=== PATIENT | male | born 1950 | race Caucasian/White ===

== ENCOUNTER 2024-10-29 14:21 | Emergency (ER) | payer MEDICARE, OTHER ==
[~2024-10-29] VITALS: Ht 172.7 cm; Wt 90.7 kg
[2024-10-29] MEDS ORDERED: Acetaminophen 500 MG Tab PO ONE (15:45)
[2024-10-29] MEDS ORDERED: Ketorolac Tromethamine 15mg Vial IV ONE (15:45)
== END 2024-10-29 17:34 | disposition home or self-care (01) ==
LOC: ER 14:21
DX: M54.50 Low back pain, unspecified (principal); E11.9 Type 2 diabetes mellitus without complications
CPT/HCPCS: 72131; 96374; 99284-25; A9270; J1885

== ENCOUNTER 2025-08-10 22:01 | Inpatient (IN) | payer MEDICARE, OTHER ==
[~2025-08-10] VITALS: Ht 172.7 cm; Wt 81.4 kg
[2025-08-11 00:30] VITALS: BP 108/64
[2025-08-11] MEDS ORDERED: GABA300 PO (00:34)
[2025-08-11] MEDS ORDERED: INSULANPEN (00:35)
[2025-08-11] MEDS ORDERED: ACET500 PO (00:36)
[2025-08-11 00:59] LABS: BASOPHILS ABSOLUTE AUTO 0.07 K/mm3 (0.00-0.23); BASOPHILS PERCENT AUTO 1 % (0-2); EOSINOPHILS ABSOLUTE AUTO 0.19 K/mm3 (0.00-0.68); EOSINOPHILS PERCENT AUTO 2 % (0-6); Hematocrit 40.2 % (37.0-53.0); Hemoglobin 14.4 g/dL (13.5-17.5); IMMATURE GRAN ABSOLUTE AUTO 0.10 K/mm3 (0.00-0.10); IMMATURE GRAN PERCENT AUTO 1 % (0-1); LYMPHOCYTES ABSOLUTE AUTO 1.54 K/mm3 (0.84-5.20); LYMPHOCYTES PERCENT AUTO 14 % (21-46); MONOCYTES ABSOLUTE AUTO 1.35 K/mm3 (0.16-1.47); MONOCYTES PERCENT AUTO 12 % (4-13); Mean Corpuscular HGB Conc 35.8 g/dL (31.5-36.5); Mean Corpuscular Volume 89 fL (80-100); NEUTROPHILS ABSOLUTE AUTO 7.98 K/mm3 (1.96-9.15); NEUTROPHILS PERCENT AUTO 71 % (41-73); NRBC ABSOLUTE 0.00 K/mm3 (0.00-0.02); NRBC Auto 0.0 /100 WBC (0.0-0.2); Platelet Count 287 K/mm3 (150-400); RDW Coefficient Variation 12.4 % (11.7-14.2); RDW Standard Deviation 40.5 fL (35.1-46.3)
[2025-08-11 01:14] LABS: Prothrombin Time Results 10.9 Sec (9.7-11.5)
[2025-08-11 01:29] LABS: Magnesium, Blood 2.1 mg/dL (1.6-2.4)
[2025-08-11 01:30] LABS: Alanine Aminotransfer (ALT/SGP 51.0 U/L (12-78); Albumin, Blood 2.3 g/dL (3.4-5.0); Albumin/Globulin Ratio 0.5 (0.8-1.8); Anion Gap 11.0 mmol/L (3-11); Aspartate Aminotrans (AST/SGOT 24.0 U/L (12-37); Bilirubin, Total 0.3 mg/dL (0.1-1.0); Blood Urea Nitrogen 80.0 mg/dL (8-24); CO2, Blood 20.0 mmol/L (21-32); Calcium, Blood 8.4 mg/dL (8.5-10.1); Chloride, Blood 104.0 mmol/L (98-108); Creatinine, Blood 2.18 mg/dL (0.60-1.20); Globulin, Blood 4.6 g/dL (2.2-4.0); Glucose, Blood 248.0 mg/dL (70-99); Potassium, Blood 4.7 mmol/L (3.5-5.5); Sodium, Blood 130.0 mmol/L (136-145); Total Protein, Blood 6.9 g/dL (6.4-8.2)
[2025-08-11] MEDS ORDERED: FLU VACC TS2025(65UP)/MF59C/PF 45 MCG/0.5 ML SYRINGE IM SCH (01:30)
[2025-08-11] MEDS ORDERED: CefTRIAXone Sodium 2,000 MG in NS 100 ML IV SCH ×2 (01:56→07:00)
[2025-08-11] MEDS ORDERED: Insulin Glargine-Yfgn 100 Unit/mL 3 ML SYR SC ONE (02:00)
[2025-08-11] MEDS ORDERED: Insulin Glargine 100 Unit/ML 3 ML SYR SC ONE (02:15)
[2025-08-11 03:16] LABS: Phosphorus, Blood 2.1 mg/dL (2.5-4.9)
[2025-08-11 03:20] VITALS: BP 124/76
[2025-08-11 05:29] LABS: BASOPHILS ABSOLUTE AUTO 0.08 K/mm3 (0.00-0.23); BASOPHILS PERCENT AUTO 1 % (0-2); EOSINOPHILS ABSOLUTE AUTO 0.26 K/mm3 (0.00-0.68); EOSINOPHILS PERCENT AUTO 2 % (0-6); Hematocrit 39.4 % (37.0-53.0); Hemoglobin 13.8 g/dL (13.5-17.5); IMMATURE GRAN ABSOLUTE AUTO 0.14 K/mm3 (0.00-0.10); IMMATURE GRAN PERCENT AUTO 1 % (0-1); LYMPHOCYTES ABSOLUTE AUTO 1.49 K/mm3 (0.84-5.20); LYMPHOCYTES PERCENT AUTO 13 % (21-46); MONOCYTES ABSOLUTE AUTO 1.18 K/mm3 (0.16-1.47); MONOCYTES PERCENT AUTO 10 % (4-13); Mean Corpuscular HGB Conc 35.0 g/dL (31.5-36.5); Mean Corpuscular Volume 91 fL (80-100); NEUTROPHILS ABSOLUTE AUTO 8.20 K/mm3 (1.96-9.15); NEUTROPHILS PERCENT AUTO 72 % (41-73); NRBC ABSOLUTE 0.00 K/mm3 (0.00-0.02); NRBC Auto 0.0 /100 WBC (0.0-0.2); Platelet Count 301 K/mm3 (150-400); RDW Coefficient Variation 12.5 % (11.7-14.2); RDW Standard Deviation 41.8 fL (35.1-46.3)
[2025-08-11] MEDS ORDERED: NS 1,000 ML IV ONE (06:00)
[2025-08-11 06:07] LABS: Alanine Aminotransfer (ALT/SGP 46.0 U/L (12-78); Albumin, Blood 2.3 g/dL (3.4-5.0); Albumin/Globulin Ratio 0.5 (0.8-1.8); Anion Gap 10.0 mmol/L (3-11); Aspartate Aminotrans (AST/SGOT 19.0 U/L (12-37); Bilirubin, Total 0.4 mg/dL (0.1-1.0); Blood Urea Nitrogen 79.0 mg/dL (8-24); CO2, Blood 22.0 mmol/L (21-32); Calcium, Blood 8.4 mg/dL (8.5-10.1); Chloride, Blood 103.0 mmol/L (98-108); Creatinine, Blood 2.06 mg/dL (0.60-1.20); Globulin, Blood 4.4 g/dL (2.2-4.0); Glucose, Blood 270.0 mg/dL (70-99); Potassium, Blood 4.6 mmol/L (3.5-5.5); Sodium, Blood 130.0 mmol/L (136-145); Total Protein, Blood 6.7 g/dL (6.4-8.2)
[2025-08-11] MEDS ORDERED: Insulin Human Lispro 100 Units/ML 3ML Syringe SC SCH ×2 (07:30→08:30)
[2025-08-11 07:42] VITALS: BP 116/68
[2025-08-11 08:06] LABS: Source, Urine Foley catheter
[2025-08-11 08:09] LABS: Bilirubin, Urine Neg (Neg); Color, Urine Yellow (P-Yellow); Glucose Qualitative, Urine 3+ (Neg); Ketones, Urine Neg (Neg); Leukocyte Esterase, Urine 3+ (Neg); Protein, Urine 3+ (Neg); Specific Gravity, Urine 1.015 (1.003-1.022); Urobilinogen, Urine NORM (Normal)
[2025-08-11 08:15] LABS: Red Blood Cells, Urine 50-100 /hpf (0-2); White Blood Cells, Urine 50-100 /hpf (0-5)
[2025-08-11] MEDS ORDERED: Lactobacil 2-S.Thermo-Bifido 1 1 Cap PO SCH (09:00)
[2025-08-11] MEDS ORDERED: Enoxaparin 40 MG/0.4 ML SYR SC SCH (09:00)
[2025-08-11 11:42] VITALS: BP 124/73
[2025-08-11 15:56] VITALS: BP 121/77
--- NOTE | 2025-08-11 16:09 | NUR ---
TRANSFER NOTE: MEDICAL NO TELE STATUS- A/O X4, ABLE TO COMMUNICATE NEEDS, USES CALL LIGHT APPROPRIATELY, TEARFUL AT TIMES WITH FLAT/WITHDRAWN AFFECT. CONCEPCION IS PATENT AND DRAINING CLOUDY YELLOW URINE WITH SEDIMENT TO GRAVITY. GAVE REPORT TO KRAIG IN RM 324 AT APPROX 1540, LEFT THE UNIT IN BED WITH ALL BELONGINGS AT APPROX 1550 WITHOUT INCIDENT.
[2025-08-11] MEDS ORDERED: Polyethylene Glycol 3350 17 gm PO PRN (16:20)
--- NOTE | 2025-08-11 17:28 | NUR ---
PATIENT TRANSFERED FROM PCU TO MEDICAL A/O X4. PATIENT HAS NO COMPLAINTS OF PAIN OR DISCOMFORT. UROLOGIST AT BEDSIDE TO EVALUATE AND MAKE A PLAN WITH THE PATIENT. CALL LIGHT WITHIN REACH AND BED IN LOW POSITION. NO CONCERNS
[2025-08-11 20:23] VITALS: BP 136/91
[2025-08-11] MEDS ORDERED: Insulin Glargine 100 Unit/ML 3 ML SYR SC SCH ×2 (21:00)
[2025-08-11] MEDS ORDERED: Insulin Glargine-Yfgn 100 Unit/mL 3 ML SYR SC SCH (21:00)
[2025-08-12 02:40] VITALS: BP 129/71
--- NOTE | 2025-08-12 03:52 | NUR ---
SHIFT SUMMARY: PT IS AOX4 AND ABLE TO MAKE NEEDS KNOWN. CONCEPCION IS PATENT AND DRAINING TO GRAVITY. URINE IS YELLOW IN COLOR AND SLIGHTLY CLOUDY. PT MEDICATED PER EMAR. NO ACUTE CHANGES THIS SHIFT.
[2025-08-12] MEDS ORDERED: NS 250 ML IV PRN (05:10)
[2025-08-12 07:23] VITALS: BP 121/71
[2025-08-12 07:24] LABS: BASOPHILS ABSOLUTE AUTO 0.07 K/mm3 (0.00-0.23); BASOPHILS PERCENT AUTO 1 % (0-2); EOSINOPHILS ABSOLUTE AUTO 0.24 K/mm3 (0.00-0.68); EOSINOPHILS PERCENT AUTO 2 % (0-6); Hematocrit 40.7 % (37.0-53.0); Hemoglobin 13.5 g/dL (13.5-17.5); IMMATURE GRAN ABSOLUTE AUTO 0.15 K/mm3 (0.00-0.10); IMMATURE GRAN PERCENT AUTO 2 % (0-1); LYMPHOCYTES ABSOLUTE AUTO 1.34 K/mm3 (0.84-5.20); LYMPHOCYTES PERCENT AUTO 13 % (21-46); MONOCYTES ABSOLUTE AUTO 1.20 K/mm3 (0.16-1.47); MONOCYTES PERCENT AUTO 12 % (4-13); Mean Corpuscular HGB Conc 33.2 g/dL (31.5-36.5); Mean Corpuscular Volume 95 fL (80-100); NEUTROPHILS ABSOLUTE AUTO 7.04 K/mm3 (1.96-9.15); NEUTROPHILS PERCENT AUTO 70 % (41-73); NRBC ABSOLUTE 0.00 K/mm3 (0.00-0.02); NRBC Auto 0.0 /100 WBC (0.0-0.2); Platelet Count 293 K/mm3 (150-400); RDW Coefficient Variation 13.0 % (11.7-14.2); RDW Standard Deviation 45.3 fL (35.1-46.3)
[2025-08-12 07:48] LABS: Anion Gap 9.0 mmol/L (3-11); Blood Urea Nitrogen 53.0 mg/dL (8-24); CO2, Blood 24.0 mmol/L (21-32); Calcium, Blood 8.3 mg/dL (8.5-10.1); Chloride, Blood 103.0 mmol/L (98-108); Creatinine, Blood 1.68 mg/dL (0.60-1.20); Glucose, Blood 336.0 mg/dL (70-99); Potassium, Blood 4.8 mmol/L (3.5-5.5); Sodium, Blood 131.0 mmol/L (136-145)
[2025-08-12] MEDS ORDERED: NS 1,000 ML IV SCH (09:00)
[2025-08-12] MEDS ORDERED: Insulin Glargine 100 Unit/ML 3 ML SYR SC SCH ×2 (09:00→21:00)
--- NOTE | 2025-08-12 13:44 | NUR ---
NOTE BREAK RN PUT IN REQUEST FOR RECORDS FROM THE [facility]. ANTONIO FAXED OVER URINE CULTURE RESULTS, REPORTED RESULTS TO ANALI FINNEGAN. ANALI FINNEGAN CAME TO TALK TO PT. THIS RN REPORTED BREAKFAST AND LUNCH BLOOD SUGAR RESULTS. ANALI FINNEGAN MADE ADJUSTEMENTS TO INSULIN ORDERS. PHYSICAL THERAPY REPORTED ATTEMPTED TO WORK WITH PT BUT PT REPORTED "I GET AROUND FINE AT HOME, BLOOD SUGAR REMAINS HIGH, I WILL WORK WITH PT TOMORROW." PT IN BED. BED IN LOWEST POSITION, CALL LIGHT IN REACH.
[2025-08-12 14:53] VITALS: BP 148/76
[2025-08-12] MEDS ORDERED: Insulin Human Lispro 100 Units/ML 3ML Syringe SC SCH (16:30)
--- NOTE | 2025-08-12 17:22 | NUR ---
SHIFT SUMMARY PT A&OX4. PT ADMITTED DUE TO JOE. PHYSICAL THERAPY ATTEMPTED WORKING WITH PT. PT REPORTS BLE PAIN, PAIN MANGED PER EMAR, GABAPENTIN WAS INCREASED TODAY DUE TO NUMBNESS AND TINGLING PAIN. PT ACHS, INSULIN ADJUSTED TODAY, DIETITION GAVE DIABETIC EDUCATION. PT HAS CONCEPCION IN PLACE, DRAINING ADEQUATE WITH NO DEPENDENT LOOPS, RECORDS FROM [facility] IN CHART. URINE CULTURE FROM [facility] IN CHART, REPORTED TO DR BRIONES. PT IN BED, BED IN LOWEST POSITION, CALL LIGHT IN REACH. PT CALLS APPROPRIATE. VSS.
[2025-08-12] MEDS ORDERED: Insulin Glargine-Yfgn 100 Unit/mL 3 ML SYR SC SCH (18:00)
[2025-08-12 19:43] VITALS: BP 118/67
--- NOTE | 2025-08-13 03:53 | NUR ---
SHIFT SUMMARY: PT IS AOX4 AND ABLE TO MAKE NEEDS KNOWN. PT MEDICATED PER EMAR. PT RESTING IN BED THROUGH OUT SHIFT. CONCEPCION IN PLACE AND IS PATENT AND DRAINING TO GRAVITY. NO ACUTE CHANGES THIS SHIFT.
[2025-08-13 04:15] VITALS: BP 124/60
[2025-08-13 04:25] LABS: BASOPHILS ABSOLUTE AUTO 0.10 K/mm3 (0.00-0.23); BASOPHILS PERCENT AUTO 1 % (0-2); EOSINOPHILS ABSOLUTE AUTO 0.23 K/mm3 (0.00-0.68); EOSINOPHILS PERCENT AUTO 2 % (0-6); Hematocrit 41.0 % (37.0-53.0); Hemoglobin 14.1 g/dL (13.5-17.5); IMMATURE GRAN ABSOLUTE AUTO 0.29 K/mm3 (0.00-0.10); IMMATURE GRAN PERCENT AUTO 3 % (0-1); LYMPHOCYTES ABSOLUTE AUTO 1.55 K/mm3 (0.84-5.20); LYMPHOCYTES PERCENT AUTO 15 % (21-46); MONOCYTES ABSOLUTE AUTO 1.16 K/mm3 (0.16-1.47); MONOCYTES PERCENT AUTO 11 % (4-13); Mean Corpuscular HGB Conc 34.4 g/dL (31.5-36.5); Mean Corpuscular Volume 93 fL (80-100); NEUTROPHILS ABSOLUTE AUTO 7.26 K/mm3 (1.96-9.15); NEUTROPHILS PERCENT AUTO 69 % (41-73); NRBC ABSOLUTE 0.00 K/mm3 (0.00-0.02); NRBC Auto 0.0 /100 WBC (0.0-0.2); Platelet Count 274 K/mm3 (150-400); RDW Coefficient Variation 13.0 % (11.7-14.2); RDW Standard Deviation 44.5 fL (35.1-46.3)
[2025-08-13 04:49] LABS: Alanine Aminotransfer (ALT/SGP 36.0 U/L (12-78); Albumin, Blood 2.2 g/dL (3.4-5.0); Albumin/Globulin Ratio 0.5 (0.8-1.8); Anion Gap 7.0 mmol/L (3-11); Aspartate Aminotrans (AST/SGOT 20.0 U/L (12-37); Bilirubin, Total 0.2 mg/dL (0.1-1.0); Blood Urea Nitrogen 39.0 mg/dL (8-24); CO2, Blood 23.0 mmol/L (21-32); Calcium, Blood 8.3 mg/dL (8.5-10.1); Chloride, Blood 109.0 mmol/L (98-108); Creatinine, Blood 1.37 mg/dL (0.60-1.20); Globulin, Blood 4.3 g/dL (2.2-4.0); Glucose, Blood 93.0 mg/dL (70-99); Potassium, Blood 4.2 mmol/L (3.5-5.5); Sodium, Blood 135.0 mmol/L (136-145); Total Protein, Blood 6.5 g/dL (6.4-8.2)
[2025-08-13] MEDS ORDERED: CefTRIAXone Sodium 1,000 MG in NS 100 ML IV SCH (06:00)
[2025-08-13 07:15] VITALS: BP 134/69
--- NOTE | 2025-08-13 08:16 | NUR ---
CALLED DR BLOUNT- PT BG WAS 97 THIS AM. HE HAS A NEW SEMGLEE ORDER FOR 30 UNITS BID AND THE FIRST DOSE OF THAT WAS GIVEN LAST NIGHT. HE HAS A NEW PREPRADIAL DOSE OF 10 UNITS PLUS CS HUMALOG INSULIN HE RECIEVED 2 DOSES OF YESTERDAY. PRIOR TO THIS AM DOSE PT BG TREND WAS 250-300 ON AVERAGE. ORDER RECIEVED TO HOLD ALL INSULIN AT THIS TIME AND CTM.
--- NOTE | 2025-08-13 12:22 | NUR ---
"Spiritual Care | Nurse Request At the request of the Pts. nurse this crm dynamics developer came to bedside. Pt. displayed evidence of anxiety about many things including confusion regarding his care. Facilitated a life review and Pt. verbalizes that while he has a daughter in [place], he doesn't want to bother her with his troubles. With theraputic listening the Pt. began to display evidence of finding encouragement. A nurse arrived to give the Pt. treatment. This crm dynamics developer agreed to return before the end of the day, and the Pt. welcomed the crm dynamics developer to return."
[2025-08-13 15:21] VITALS: BP 147/84
--- NOTE | 2025-08-13 16:24 | NUR ---
SHIFT SUMMARY- PT BG WAS LOW THIS AM SEE PREV NOTES FOR DETAILS. PT RECIEVED THE [address] PER [address] BRIONES A BIT LATER IN THE DAY. PT HAS A CONCEPCION IN PLACE AND HE WAS QUITE EMOTIONAL ABOUT THE IDEA OF BEING DISCHARGED "OUT ON THE STREET" "WITH NO WAY TO GET MY INSULIN UNTIL SATURDAY." PT HAD RECIEVED INFORMATION FROM THE [facility] AND FROM 2-3 DIFFERENT DOCTORS AND HE SEEMED TO HAVE ALL THE INPUT SCRAMBLED UP. DR BLOUNT SAT WITH HIM FOR QUITE A WHILE AND GOT IT STRAIGHTENED OUT FOR THE PT. PLAN IS FOR THE PT TO DC HOME WITH HOME HEALTH WIITH HIS CONCEPCION IN PLACE AND FOLLOW UP WITH UROLOGY AND HIS PCP. CARE MANAGEMENT SPOKE TO THE PT DAUGHTER WHO WILL HELP TRANSPORT THE PT AT DISCHARGE, WELL WITH HIS FOLLOW UP NEEDS.
[2025-08-13 19:32] LABS: Prostate Specific Antigen 163.000 ng/mL (0.000-4.000)
[2025-08-13 20:29] VITALS: BP 127/76
--- NOTE | 2025-08-14 04:48 | NUR ---
PT REQUESTED PAIN MEDICATION ONE TIME DURING THIS SHIFT. OTHER RIZZO RESTED COMFORTABLE WITH NO ACUTE EVENTS AND VITALS STABLE. CALL SEPULVEDA WITHIN REACH, BED IN LOW POSITION, CALL SEPULEVDA AND POSSESSIONS WITHIN REACH.
[2025-08-14 05:37] LABS: BASOPHILS ABSOLUTE AUTO 0.11 K/mm3 (0.00-0.23); BASOPHILS PERCENT AUTO 1 % (0-2); EOSINOPHILS ABSOLUTE AUTO 0.26 K/mm3 (0.00-0.68); EOSINOPHILS PERCENT AUTO 2 % (0-6); Hematocrit 39.6 % (37.0-53.0); Hemoglobin 13.8 g/dL (13.5-17.5); IMMATURE GRAN ABSOLUTE AUTO 0.45 K/mm3 (0.00-0.10); IMMATURE GRAN PERCENT AUTO 4 % (0-1); LYMPHOCYTES ABSOLUTE AUTO 1.94 K/mm3 (0.84-5.20); LYMPHOCYTES PERCENT AUTO 16 % (21-46); MONOCYTES ABSOLUTE AUTO 1.12 K/mm3 (0.16-1.47); MONOCYTES PERCENT AUTO 10 % (4-13); Mean Corpuscular HGB Conc 34.8 g/dL (31.5-36.5); Mean Corpuscular Volume 92 fL (80-100); NEUTROPHILS ABSOLUTE AUTO 7.97 K/mm3 (1.96-9.15); NEUTROPHILS PERCENT AUTO 67 % (41-73); NRBC ABSOLUTE 0.00 K/mm3 (0.00-0.02); NRBC Auto 0.0 /100 WBC (0.0-0.2); Platelet Count 310 K/mm3 (150-400); RDW Coefficient Variation 13.0 % (11.7-14.2); RDW Standard Deviation 44.1 fL (35.1-46.3)
[2025-08-14 06:01] LABS: Alanine Aminotransfer (ALT/SGP 35.0 U/L (12-78); Albumin, Blood 2.2 g/dL (3.4-5.0); Albumin/Globulin Ratio 0.5 (0.8-1.8); Anion Gap 11.0 mmol/L (3-11); Aspartate Aminotrans (AST/SGOT 23.0 U/L (12-37); Bilirubin, Total 0.2 mg/dL (0.1-1.0); Blood Urea Nitrogen 32.0 mg/dL (8-24); CO2, Blood 23.0 mmol/L (21-32); Calcium, Blood 8.6 mg/dL (8.5-10.1); Chloride, Blood 108.0 mmol/L (98-108); Creatinine, Blood 1.35 mg/dL (0.60-1.20); Globulin, Blood 4.4 g/dL (2.2-4.0); Glucose, Blood 76.0 mg/dL (70-99); Potassium, Blood 4.2 mmol/L (3.5-5.5); Sodium, Blood 138.0 mmol/L (136-145); Total Protein, Blood 6.6 g/dL (6.4-8.2)
[2025-08-14 07:37] VITALS: BP 131/71
[2025-08-14 15:14] VITALS: BP 131/84
[2025-08-14] MEDS ORDERED: FentaNYL Citrate 50 MCG/ML 2 ML Injection IV PRN (17:40)
[2025-08-14 20:05] VITALS: BP 146/82
--- NOTE | 2025-08-14 20:05 | NUR ---
PT WAS PLANNING TO DC HOME TODAY WITH DAUGHTER. THIS AFTERNOON FINANCIAL SERVICES MANAGER ALERTED RN THAT THE PT CONCEPCION WAS DRAINING BLOODY URINE. MD NOTIFIED, RN ATTEMPTED TO FLUSH OUT CLOT AFTER BLADDER SCAN>700 ML. AFTER OVER 30 MIN UNSUCCESSFUL FLUSHING, ORDER PLACED FOR CBI. ONCE ALL SUPPLIES GATHERED, OLD CONCEPCION REMOVED AND 3 WAY CONCEPCION PLACED FOR CBI. IMMEDIATLY DRAINED BLOODY URINE AND MULTIPLE CLOTS 500 ML OUT. BLADDER SCAN SHOWED 0ML, CBI STARTED, DRAINING CLEAR URINE. PT EDUCATED, REPORT GIVEN TO NARA RN.
[2025-08-14] MEDS ORDERED: Insulin Human Lispro 100 Units/ML 3ML Syringe SC SCH (21:00)
--- NOTE | 2025-08-14 23:19 | NUR ---
CONTINOUS BLADDER IRRIGATION DRAINING CLEAR YELLOW URINE WITH AN OCCASSIONAL CLOT IN BOTTOM OF BAG. BLADDER SCAN HAS BEEN ZERO AFTER CLAMPING FOR THIRTY MINUTES. RATE SLOWED PER VERBAL ORDER FROM DR FRAGA APPROX 500 mL/HR AFTER TWO HOURS @ 1,000 mL/HR. WCTM. PATIENT TOLERATING WELL. WCTM.
--- NOTE | 2025-08-15 04:03 | NUR ---
SHIFT SUMMARY PATIENT HAD NO ACUTE CHANGES. ALERT ORIENTED AND ONE ASSIST. ON CBI RUNNING CLEAR YELLOW URINE. DENIES CHEST PAIN, SOB, AND N/V. VSS/FEBRILE LOW GRADE TEMP 99.0. REPORTED ABDOMEN PAIN X ONE AND OXYCODONE 5 MG GIVEN PER EMAR. TYLENOL 650 GIVEN FOR HAND/FEET PAIN. PIV INTACT. CBG 267. CONCEPCION PATENT AND DRAINING TO GRAVITY. CALL LIGHT IN REACH. BED IN LOWEST POSITION. WILL CONTINUE TO MONITOR UNTIL DAY SHIFT NURSE ASSUMES CARE.
[2025-08-15 04:48] VITALS: BP 128/75
[2025-08-15 05:03] LABS: BASOPHILS ABSOLUTE AUTO 0.10 K/mm3 (0.00-0.23); BASOPHILS PERCENT AUTO 1 % (0-2); EOSINOPHILS ABSOLUTE AUTO 0.39 K/mm3 (0.00-0.68); EOSINOPHILS PERCENT AUTO 4 % (0-6); Hematocrit 39.1 % (37.0-53.0); Hemoglobin 12.9 g/dL (13.5-17.5); IMMATURE GRAN ABSOLUTE AUTO 0.30 K/mm3 (0.00-0.10); IMMATURE GRAN PERCENT AUTO 3 % (0-1); LYMPHOCYTES ABSOLUTE AUTO 1.77 K/mm3 (0.84-5.20); LYMPHOCYTES PERCENT AUTO 17 % (21-46); MONOCYTES ABSOLUTE AUTO 0.93 K/mm3 (0.16-1.47); MONOCYTES PERCENT AUTO 9 % (4-13); Mean Corpuscular HGB Conc 33.0 g/dL (31.5-36.5); Mean Corpuscular Volume 95 fL (80-100); NEUTROPHILS ABSOLUTE AUTO 6.89 K/mm3 (1.96-9.15); NEUTROPHILS PERCENT AUTO 66 % (41-73); NRBC ABSOLUTE 0.00 K/mm3 (0.00-0.02); NRBC Auto 0.0 /100 WBC (0.0-0.2); Platelet Count 290 K/mm3 (150-400); RDW Coefficient Variation 12.9 % (11.7-14.2); RDW Standard Deviation 45.4 fL (35.1-46.3)
[2025-08-15 06:08] LABS: Alanine Aminotransfer (ALT/SGP 33.0 U/L (12-78); Albumin, Blood 2.1 g/dL (3.4-5.0); Albumin/Globulin Ratio 0.5 (0.8-1.8); Anion Gap 9.0 mmol/L (3-11); Aspartate Aminotrans (AST/SGOT 22.0 U/L (12-37); Bilirubin, Total 0.2 mg/dL (0.1-1.0); Blood Urea Nitrogen 28.0 mg/dL (8-24); CO2, Blood 23.0 mmol/L (21-32); Calcium, Blood 8.6 mg/dL (8.5-10.1); Chloride, Blood 107.0 mmol/L (98-108); Creatinine, Blood 1.27 mg/dL (0.60-1.20); Globulin, Blood 4.1 g/dL (2.2-4.0); Glucose, Blood 175.0 mg/dL (70-99); Potassium, Blood 4.5 mmol/L (3.5-5.5); Sodium, Blood 134.0 mmol/L (136-145); Total Protein, Blood 6.2 g/dL (6.4-8.2)
[2025-08-15 07:14] VITALS: BP 127/68
[2025-08-15 15:51] VITALS: BP 137/73
--- NOTE | 2025-08-15 19:24 | NUR ---
SHIFT SUMMARY; A/O X4, PLEASANT, AND COPPERATIVE WITH CARE. PT AT BEDREST DURING SHIFT. UPON ASSESSMENT, CONCEPCION TUBE FOR CBI HAD FEW SMALL CLUMPS OF SEDIMENT THAT WERE CAUSING SLIGHT IRRIGATION BLOCKAGE THAT RESOLVED THROUGHOUT THE SHIFT. ORDER RECEIVED TO STOP BLADDER IRRIGATION AT APPROX 1400. NURSE NOTIFY PLACED TO RESUME OF URINE BECOMES BLOODY OR IF NO OUTPUT FOR 4 HOURS. BEDNIGHT SHIFT REPORT COMPLETE TO QUARRY SUPERVISOR OPEN PIT RN. PT REQUESTING TYLENOL. QUARRY SUPERVISOR OPEN PIT RN AWARE. PT IS IN BED, CALL LIGHT WITHIN REACH. NO S/SXS OF DISTRESS.
[2025-08-15 19:55] VITALS: BP 130/67
--- NOTE | 2025-08-16 04:02 | NUR ---
SHIFT SUMMARY PATIENT HAD NO ACUTE CHANGES. ALERT ORIENTED AND ONE ASSIST W/FWW GB TO BR. CONCEPCION PATENT AND DRAINING TO GRAVITY. PIV INTACT. DENIES CHEST PAIN, SOB, AND N/V. VSS/AFEBRILE. CBG 218. REPORTED CHRONIC BACK PAIN AND TYLENOL 650 MG GIVEN PER EMAR. COOPERATIVE WITH CARE. CALL LIGHT IN REACH. BED IN LOWEST POSITION. WILL CONTINUE TO MONITOR UNTIL DAY SHIFT NURSE ASSUMES CARE
[2025-08-16 04:30] VITALS: BP 130/72
[2025-08-16 06:17] LABS: Anion Gap 8.0 mmol/L (3-11); Blood Urea Nitrogen 29.0 mg/dL (8-24); CO2, Blood 25.0 mmol/L (21-32); Calcium, Blood 8.9 mg/dL (8.5-10.1); Chloride, Blood 104.0 mmol/L (98-108); Creatinine, Blood 1.35 mg/dL (0.60-1.20); Glucose, Blood 188.0 mg/dL (70-99); Potassium, Blood 4.8 mmol/L (3.5-5.5); Sodium, Blood 132.0 mmol/L (136-145)
[2025-08-16 07:25] LABS: Hematocrit 39.9 % (37.0-53.0); Hemoglobin 13.2 g/dL (13.5-17.5)
[2025-08-16 08:00] VITALS: BP 118/61
[2025-08-16] MEDS ORDERED: INSULANPEN SC (14:44)
[2025-08-16] MEDS ORDERED: HUMALOG KW100 UNIT/1 SC (14:45)
[2025-08-16] MEDS ORDERED: VISBIOME 112.51 EACH PO (14:45)
[2025-08-16] MEDS ORDERED: TAMS.4ER PO (14:45)
[2025-08-16] MEDS ORDERED: BICALUTAMIDE50 M1 PO (14:45)
[2025-08-16] MEDS ORDERED: Cefpodoxime Pr100 MG PO (14:46)
[2025-08-16 15:36] VITALS: BP 146/80
--- NOTE | 2025-08-16 20:05 | NUR ---
SHIFT SUMMARY PT A&OX4. PT ADMITTED DUE TO JOE. PT REPORTS NO CHEST PAIN/SOB. PT REPORTS BLE TINGLING FEET PAIN. PAIN MANAGED PER EMAR. VSS. PT ACHS, INSULIN PROVIDED WITH MEALS. NIGHT RN PREVIOUSLY REPORTED STOPPING BLADDER IRRIGATION PER NO BLOOD IN URINE. DURING SHIFT, MINIMAL BLOOD SEEN BY THIS RN IN CONCEPCION, REPORTED TO DR. BLOUNT. DR. BLOUNT ORDERED DISCHARGE. PT SBA. CONT OF URINE. BAG MENDER INVOLVED. PT REPORTED WANTING TO BOOK HOTEL AND STAY IN [place] THIS WEEK TO MAKE IT TO UROLOGY APPT NEXT WEEK. BAG MENDER REPORTED "PT NEEDS TO CALL FOR TAXI TO GET TO PHARMACY AND HOTEL." WENT OVER DISCHARGE INSTRUCTIONS AND MEDS WITH PT. ELIER RN EXCHANGED CONCEPCION BAG TO LEG BAG PER PT REQUEST AND DR. BLOUNT APPROVAL. PT SENT WITH EXTRA CONCEPCION BAG SUPPLIES AND ALCOHOL SWABS. ELIER RN PROVIDED EDUCATION ABOUT BAG AND SAFE AND CLEAN HANDELING. MEDS FAXED TO PREFERRED PHARMACY. [facility] DEAN ESCORTED PT VIA WHEELCHAIR TO PT ENTERANCE.
== END 2025-08-16 18:00 | disposition home health service (06) | DRG 638 ==
LOC: MEDS 22:01 → ICUE 22:01 → PCU 22:01 → MEDS 08-11 16:00 → ENPENDDIS 08-16 10:35 → EDPENDDIS 08-16 10:35 → MEDS 08-16 18:00
PROVIDERS: Student in an Organized Health Care Education/Training Program; Urology; ADMIT Internal Medicine
PROC: 0T9B70Z Drainage of Bladder with Drainage Device, Via Natural or Artificial Opening (ICD-10-PCS; principal; 2025-08-10)
PROC: 3E03329 Introduction of Other Anti-infective into Peripheral Vein, Percutaneous Approach (ICD-10-PCS; 2025-08-11)
PROC: 3E02340 Introduction of Influenza Vaccine into Muscle, Percutaneous Approach (ICD-10-PCS; 2025-08-11)
DX: E11.00 Type 2 diabetes mellitus with hyperosmolarity without nonketotic hyperglycemic-hyperosmolar coma (NKHHC) (principal); E87.1 Hypo-osmolality and hyponatremia; N17.9 Acute kidney failure, unspecified; N13.6 Pyonephrosis; N13.8 Other obstructive and reflux uropathy; Z66 Do not resuscitate; Z60.2 Problems related to living alone; E87.5 Hyperkalemia; N18.9 Chronic kidney disease, unspecified; M54.50 Low back pain, unspecified; E11.40 Type 2 diabetes mellitus with diabetic neuropathy, unspecified; R31.0 Gross hematuria; G89.29 Other chronic pain; N40.1 Benign prostatic hyperplasia with lower urinary tract symptoms; N28.89 Other specified disorders of kidney and ureter; R33.8 Other retention of urine; E11.22 Type 2 diabetes mellitus with diabetic chronic kidney disease; D41.00 Neoplasm of uncertain behavior of unspecified kidney; Z79.899 Other long term (current) drug therapy; Z79.85 Long-term (current) use of injectable non-insulin antidiabetic drugs; Z85.46 Personal history of malignant neoplasm of prostate; Z91.148 Patient's other noncompliance with medication regimen for other reason
CPT/HCPCS: 36415; 74177; 76770; 80048; 80053; 81001; 82947; 83036; 83735; 83880; 84100; 84153; 85014; 85018; 85025; 85610; 87086; 97116; 97162; 97530; A9270; J0696; J1650; J1815; J3010; J7030; J7050; Q9967

== ENCOUNTER 2025-08-19 19:52 | Emergency (ER) | payer MEDICARE, OTHER ==
[~2025-08-19] VITALS: Ht 172.7 cm; Wt 86.2 kg
[~2025-08-19 19:52] MED LIST: ACET500 PO; BICALUTAMIDE50 M1 PO; Cefpodoxime Pr100 MG PO; GABA300 PO; HUMALOG KW100 UNIT/1 SC; INSULANPEN; INSULANPEN SC; TAMS.4ER PO; VISBIOME 112.51 EACH PO
== END 2025-08-20 00:12 | disposition home or self-care (01) ==
LOC: ER 19:52
DX: T83.091A Other mechanical complication of indwelling urethral catheter, initial encounter (principal); R31.0 Gross hematuria; Z46.6 Encounter for fitting and adjustment of urinary device; E11.9 Type 2 diabetes mellitus without complications; Z79.4 Long term (current) use of insulin; Z79.899 Other long term (current) drug therapy; Z91.010 Allergy to peanuts
CPT/HCPCS: 99283